=== PATIENT | male | born 1975 | race Caucasian/White ===

== ENCOUNTER 2021-11-17 08:54 | Day surgery (SDC) | payer BC, SELFPAY ==
[2021-11-13 14:19] VITALS: BMI 26.9
[2021-11-17 08:59] VITALS: BP 131/99; PULSE 68; RESP 17; TEMP 36.1; O2SAT 100
[2021-11-17] MEDS: Lactated Ringers 1,000 ML 50 ML IVCONT (09:20)
--- NOTE | 2021-11-17 09:32 | HO.ANESPROP2 ---
[facility] Past Medical History Medical History Hereditary spherocytosis Surgical History Surgical History History of splenectomy History of Problems with Anesthesia: No Social History Social History Patient Tobacco Use Status: Never used Tobacco Are you DNR?: No Advance Directives: No Advance Directives Information Provided: Yes Meds Allergies Allergy/AdvReac Type Severity Reaction Status Date / Time bee pollen [bee stings] Allergy Unknown Verified 11/13/21 14:24 codeine Allergy Unknown Verified 11/13/21 14:24 Active Medications: Current Medications Lactated Ringer's (Lr) 1,000 mls @ 50 mls/hr IVCONT .Q20H BRANDON Last Admin: 11/17/21 09:20 Dose: 50 mls/hr Documented by: Home Medications Medication Instructions Recorded Confirmed Last Taken Type Probiotic 11/13/21 Unknown History Vitamin 11/13/21 Unknown History cholecalciferol (vitamin D3) 25 25 mcg PO DAILY 11/13/21 11/13/21 Unknown History mcg (1,000 unit) tablet (Vitamin D3) methylcellulose (with sugar) oral 1 tbsp PO DAILY 11/13/21 11/13/21 Unknown History powder (Citrucel (sucrose)) multivitamin 1 tab PO DAILY 11/13/21 11/13/21 Unknown History omega 1-onr-mek-fish oil 1,000 mg 1 cap PO DAILY 11/13/21 11/13/21 11/10/21 History (120 mg-180 mg) capsule (Fish Oil) Exam Exam Date and Time: November 17, 2021 0932 Height,Weight and Vital Signs: Height 5 ft 9 in Weight 82.554 kg Last Vital Signs Temp 97 F 11/17/21 08:59 Pulse 68 11/17/21 08:59 Resp 17 11/17/21 08:59 BP 131/99 H 11/17/21 08:59 Pulse Ox 100 11/17/21 08:59 Airway Mallampati Class: II TM Dist: >3cm Neck ROM: Full Loose/Missing/Broken Teeth: No Heart: RRR Lungs: CTA Assessment and Plan Assessment Anesthesia Assessment: Anesthesia Plan Discussed and Chart Reviewed Final Anesthetic Review History of Problems with Anesthesia: No NPO: Yes ASA Class: II Final Preanesthetic Review: Meds/Allgs Chart Reviewed, Consent Obtained/Reviewed and Anes Risks/Benef Reviewed Patient Risk: Low Procedure Risk: Low Anesthetic Plan Anesthetic Plan: MAC: Disposition: Standard PACU
--- NOTE | 2021-11-17 10:00 | MHC.SHP ---
Pre-Procedural Eval Section A Date of Service: 11/17/21 The patient is an INPATIENT: No Changes since office visit: No Cold of Flu in the past 2 weeks, No New Medical Problems, No Changes in Medication and No Patient answered all questions The History & Physical has been completed within 30 days and I have reviewed it.: Yes Section B Chief Complaint: Change in bowel habit Allergies: Allergies Allergy/AdvReac Type Severity Reaction Status Date / Time bee pollen [bee stings] Allergy Unknown Verified 11/13/21 14:24 codeine Allergy Unknown Verified 11/13/21 14:24 Plan I have reviewed the history and physical and performed a pertinent physical examination on my patient. No changes have occurred unless specified.
--- NOTE | 2021-11-17 10:28 | P.BOP_ITS ---
Brief Operative Note Date of Service: 11/17/21 Pre-op diagnosis: change in bowels Post-op diagnosis: same Surgeon: Bj Wisdom Anesthesia: MAC Was an Remediation Consultant used for this Procedure?: No Estimated blood loss (mL): 2 Tourniquet time (min): 0 Pathology: other (sigmoid bxs) Condition: stable Disposition: PACU
[2021-11-17 10:33] VITALS: BP 105/58; PULSE 64; RESP 15; TEMP 36.4; O2SAT 99
[2021-11-17 10:48] VITALS: BP 110/74; PULSE 61; RESP 16; TEMP 36.4; O2SAT 97
--- NOTE | 2021-11-17 21:19 | OP_ITS ---
SURGEON: Bj Wisdom MD INDICATIONS: Change in bowel habits. PREOPERATIVE DIAGNOSIS: POSTOPERATIVE DIAGNOSIS: PROCEDURE PERFORMED: Colonoscopy to the terminal ileum with biopsy. ESTIMATED BLOOD LOSS: COMPLICATIONS: ANESTHESIA: ASSISTANTS: SPECIMENS: MEDICATIONS: Monitored anesthesia care. DESCRIPTION OF PROCEDURE: History and physical were performed. The risks and benefits of the procedure were explained to the patient. Informed consent was obtained. The patient was placed in left lateral decubitus position. A digital rectal exam was performed and was found to be normal. The Olympus pediatric video colonoscope was introduced into the rectum and advanced to the cecum without difficulty. The cecum was identified by transillumination, palpation, and identification of ileocecal valve. Examination was performed and the scope was removed. He tolerated the procedure well and was transferred to recovery area in stable condition. FINDINGS: The terminal ileum was normal. The visualized colonic mucosa was normal. The quality of the prep was good. No polyps were identified. Retroflexed examination was normal. There were random sigmoid biopsies obtained for pathology. IMPRESSION: Normal colonoscopy. RECOMMENDATION: 1. Follow up the biopsy results. 2. Repeat colonoscopy is recommended in 10 years for average risk individuals. MD BRIGITTE Garcia/JUNEL / [id number]
== END 2021-11-17 11:25 | disposition home or self-care (01) ==
PROVIDERS: PCP Nurse Practitioner Adult Health; Visit Provider Internal Medicine Gastroenterology
PROC: 0DJD8ZZ Inspection of Lower Intestinal Tract, Via Natural or Artificial Opening Endoscopic (ICD-10-PCS; CPT 45378; principal; 2021-11-17 10:20)
DX: R19.4 Change in bowel habit (principal); D58.0 Hereditary spherocytosis; Z90.81 Acquired absence of spleen; Z79.899 Other long term (current) drug therapy; Z88.8 Allergy status to other drugs, medicaments and biological substances
CPT/HCPCS: 45380; 88305